=== PATIENT | female | born 1960 | race African-American/Black ===

== ENCOUNTER 2017-12-02 17:14 | Emergency (ER) | payer OTHER ==
[~2017-12-02] VITALS: Ht 160 cm; Wt 107.2 kg
[~2017-12-02 17:14] MED LIST: ACETAMINOPHEN-1 EAC1; ACETAMINOPHEN-1 EAC1 PO; ACETAMINOPHEN-1 EAC4; AMBIEN5 MG PO; AUGMENTIN875 MG PO; BACLOFEN 10 MG TABLE; BUPROPION XL300 MG; CELEBREX200 MG; CLARITIN,ALAVAR10 MG PO; CYMBALTA60 MG; DICLOFENAC SODI50 MG PO; EFFEXOR25 MG PO; ERYTHROMYC1 APPLICAT BOTH EYES; FLEXERIL10 MG PO; GABAPENTIN300 MG; HYCODAN SYRUP480 ML PO; LASIX20 MG PO; LYRICA150 MG PO; PERCOCET 5/31 TABLET PO; PREDNISONE20 MG PO; PROMETH; TAMIFLU75 MG PO; TESSALON200 MG PO; THEO-DUR,THEOC200 MG; THEOPHYLLINE PO; TOPAMAX100 MG PO; TOPAMAX25 MG PO; TRAMADOL HCL50 MG; TRAMADOL HCL50 MG PO; VENTOLIN HFA18 GM; [UNRECOGNIZED DRUG - OTHER]; albuterol mdi
[2017-12-02 20:46] LABS: HEMATOCRIT 43.9 % (36.0-46.0); HEMOGLOBIN 14.9 G/DL (11.9-15.5); MCH 31.6 PG (29.0-34.0); MCHC 33.9 G/DL (30.0-36.0); RBC DIS.WIDTH-CV 12.4 % (11.8-14.6); RBC DIS.WIDTH-SD 42.6 % (39-53); RED BLOOD COUNT 4.72 M/uL (3.80-5.20); WHITE BLOOD COUNT 3.3 K/uL (4.1-10.2)
[2017-12-02 21:21] LABS: TROP-I INTERPRETATION NEGATIVE; TROPONIN-I < 0.01 ng/mL (0.0-0.30)
[2017-12-02 21:54] LABS: CHLORIDE 106 mEq/L (99-109); POTASSIUM 3.9 mEq/L (3.7-5.4); SODIUM 140 mEq/L (136-147)
[2017-12-02 21:55] LABS: IMM.PLATELET FRACTION 0.5 (1-7)
[2017-12-02 21:56] LABS: PLATELET COUNT 2 K/uL (156-360)
[2017-12-02 21:56] LABS: GLUCOSE 101 mg/dL (70-99)
[2017-12-02 21:59] LABS: CREATININE 0.7 mg/dL (0.6-1.3); GFR ESTIMATE (CALCULATED) > 59 mL/min/
[2017-12-02 22:00] LABS: UREA NITROGEN (BUN) 12 mg/dL (9-23)
[2017-12-02 22:42] LABS: BASOPHIL (%) 0.6 % (0-1); BASOPHIL COUNT 0.1 K/uL (0-0.1); EOSINOPHIL (%) 2.5 % (0-5); EOSINOPHIL COUNT 0.2 K/uL (0-0.3); HEMATOCRIT 43.4 % (36.0-46.0); HEMOGLOBIN 14.5 G/DL (11.9-15.5); IMMATURE GRANULOCYTE (%) 0.2 % (0.0-0.7); LYMPHOCYTE (%) 46.9 % (15-42); LYMPHOCYTE COUNT 4.2 K/uL (1.0-2.8); MCH 31.5 PG (29.0-34.0); MCHC 33.4 G/DL (30.0-36.0); MCV 94.3 FL (83-99); MONOCYTE (%) 6.7 % (3-12); MONOCYTE COUNT 0.6 K/uL (0-0.8); NEUTROPHIL (%) 43.1 % (45-76); NEUTROPHIL COUNT 3.9 K/uL (1.8-6.4); RBC DIS.WIDTH-CV 12.6 % (11.8-14.6); RBC DIS.WIDTH-SD 43.5 % (39-53); WHITE BLOOD COUNT 8.9 K/uL (4.1-10.2)
[2017-12-02 22:47] LABS: PLATELET COUNT 233 K/uL (156-360)
[2017-12-02 23:35] VITALS: BP 149/80
== END 2017-12-02 23:36 | disposition home or self-care (01) ==
LOC: EME 17:14
PROVIDERS: Emergency Medicine
DX: E86.0 Dehydration (principal); R42 Dizziness and giddiness; J45.909 Unspecified asthma, uncomplicated; M06.9 Rheumatoid arthritis, unspecified; F32.9 Major depressive disorder, single episode, unspecified; M79.7 Fibromyalgia; G47.30 Sleep apnea, unspecified
CPT/HCPCS: 70450; 80048; 84484; 85025; 85027; 93005; 99281; 99284